=== PATIENT | male | born 2005 | race Hispanic/Latino ===

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

== ENCOUNTER 2024-07-10 19:12 | Emergency (ER) | payer BC, OTHER ==
[2024-07-10 20:22] LABS: Absolute Basophils 0.1 K/uL (0-0.5); Absolute Eosinophils 0.1 K/uL (0-0.5); Absolute Lymphocytes (CBC) 1.5 K/uL (0.7-4.9); Absolute Monocytes 0.4 K/uL (0.1-1.3); Basophils % 0.8 % (0-1.3); Eosinophils % 1.8 % (0-4.4); Hematocrit 44.1 % (39.6-49.0); Hemoglobin 14.6 g/dL (13.6-17.9); Lymphocytes % 21.4 % (15.3-44.8); MCH 30.7 pg (27.0-35.0); MCV 92.9 fL (80-100); MPV 9.5 fL (7.6-11.3); Monocytes % 5.9 % (3.3-12.3); Neutrophils % 70.1 % (41.7-73.7); Nucleated Red Blood Cells % 0.1 % (0-0); Platelets 286 thou/uL (152-406); RBC Red Blood Cell Count 4.75 M/uL (4.33-5.43); Red Cell Distribution Width 13.9 % (12.1-15.2)
[2024-07-10 20:24] LABS: Specific Gravity < 1.005 (1.005-1.030); Urine Bilirubin NEGATIVE (Negative); Urine Blood Negative (Negative); Urine Clarity Clear (Clear); Urine Color Colorless (Yellow); Urine Glucose NEGATIVE (Negative); Urine Ketones NEGATIVE (Negative); Urine Microscopic Reflex YN NO UMIC; Urine Nitrite NEGATIVE (Negative); Urine Protein NEGATIVE (Negative); Urine Urobilinogen Normal (Normal)
[2024-07-10 20:27] LABS: PT Prothrombin Time 10.8 SECONDS (10.0-13.0); PTT, Activated Partial Thromb 32.1 SECONDS (24.3-36.9); Protime INR 0.94
[2024-07-10 20:29] LABS: Benzodiazepines NEGATIVE (NEGATIVE); Cocaine NEGATIVE (NEGATIVE); METHAMPHETAM NEGATIVE (NEGATIVE); Opiates NEGATIVE (NEGATIVE); Phencyclidine NEGATIVE (NEGATIVE); THC Cannibis NEGATIVE (NEGATIVE)
[2024-07-10 20:30] LABS: Barbiturates NEGATIVE (NEGATIVE); Methadone NEGATIVE (NEGATIVE)
[2024-07-10 20:36] LABS: ALT/SGPT 20 U/L (16-61); AST/SGOT < 10 U/L (15-37); Albumin 3.8 g/dL (3.4-5.0); Albumin/Globulin Ratio 1.2 (1.1-1.8); Alkaline Phosphatase 59 U/L (45-117); Anion Gap 7.4 mEq/L (5.0-15.0); BUN Blood Urea Nitrogen 4 mg/dL (7-18); Bicarbonate 27 mEq/L (21-32); Bilirubin Direct < 0.2 mg/dL (0-0.2); Bilirubin Indirect, Calculated 0.2 mg/dL (0.2-0.8); Bilirubin Total 0.4 mg/dL (0.2-1.0); Globulin 3.3 g/dL (2.3-3.5); Glomerular Filtration Rate 138 ml/min (=/>90); Glucose Level 99 mg/dL (74-106); Potassium 3.4 mEq/L (3.5-5.1); Protein, Total 7.1 g/dL (6.4-8.2); Sodium Level 138 mEq/L (136-145)
--- NOTE | 2024-07-10 21:28 | RAD REPORT ---
EXAMINATION: Head Brain Wo Cont CLINICAL INDICATION: Male, 19 years old.CONFUSED TECHNIQUE: Axial CT images from the skull base to the vertex without intravenous contrast. Coronal an d sagittal reformatted images were created from the data set. One or more of the following dose reduction techniques were used: Automated exposure control, adjustment of the mA and/or kV according to patient size, and/or iterative reconstruction. Unless otherwise specified, incidental findings do not require dedicated imaging follow-up. [id number]. COMPARISON: No prior exam. FINDINGS: INTRACRANIAL: No acute intracranial hemorrhage. No hydrocephalus. No mass effect or midline shift. No significant white matter disease. VASCULATURE: No visualized abnormalities in the arteries or dural venous sinuses. SCALP/SKULL: No calvarial fracture identified. No acute soft tissue abnormality. SINUSES: The visualized paranasal sinuses are mostly clear. No significant mastoid fluid. IMPRESSION: No acute intracranial abnormality.
--- NOTE | 2024-07-10 21:46 | ER ---
Nurse's Notes [facility] Name: Ishan Marie Age: 19 yrs Sex: Male : 2005 Arrival Date: 07/10/2024 Time: 19:12 Bed Treatment Private MD: Diagnosis: Auditory hallucinations;Visual hallucinations Presentation: 07/10 19:36 Chief complaint: Patient states: auditory and visual hallucinations, no SI no HI. vc1 Coronavirus screen: Client denies travel out of the [place] in the last 14 days. At this time, the client does not indicate any symptoms associated with coronavirus-19. Ebola Screen: Patient negative for fever greater than or equal to 101.5 degrees Fahrenheit, and additional compatible Ebola Virus Disease symptoms Patient denies exposure to infectious person. Patient denies travel to an Ebola-affected area in the 21 days before illness onset. No symptoms or risks identified at this time. Initial Sepsis Screen: Does the patient meet any 2 criteria? No. Patient's initial sepsis screen is negative. Does the patient have a suspected source of infection? No. Patient's initial sepsis screen is negative. Risk Assessment: Do you want to hurt yourself or someone else? Patient reports no desire to harm self or others. Onset of symptoms is unknown. Care prior to arrival: None. Activity prior to arrival: None. 19:36 Method Of Arrival: Ambulatory vc1 19:36 Acuity: MAYA 3 vc1 Historical: - Allergies: 19:38 No Known Allergies; vc1 - PMHx: 19:38 Fused Vertebrae; Narrowing of the Spine; vc1 - PSHx: 19:38 None; vc1 - Immunization history:: Client reports receiving the 2nd dose of the Covid vaccine. - Infectious Disease History:: Denies. - Social history:: Smoking status: Reported history of juuling and/or vaping. Screenin:00 [facility] ED Fall Risk Assessment (Adult) History of falling in the last 3 months, jb4 including since admission No falls in past 3 months (0 pts) Confusion or Disorientation No (0 pts) Intoxicated or Sedated No (0 pts) Impaired Gait No (0 pts) Mobility Assist Device Used No (0 pt) Altered Elimination No (0 pt) Score/Fall Risk Level 0 - 2 = Low Risk Oriented to surroundings, Maintained a safe environment. Abuse screen: Denies threats or abuse. Nutritional screening: No deficits noted. Tuberculosis screening: No symptoms or risk factors identified. Assessment: 22:00 General: Appears in no apparent distress. comfortable, Behavior is calm, cooperative, jb4 appropriate for age. Pain: Denies pain. Neuro: Level of Consciousness is awake, alert, obeys commands, Oriented to person, place, time, situation, Reports Visual and auditory hallucincations.. Cardiovascular: Patient's skin is warm and dry. Respiratory: Airway is patent Respiratory effort is even, unlabored, Respiratory pattern is regular, symmetrical. Derm: Skin is intact, Skin is pink, warm \T\ dry. Musculoskeletal: Circulation, motion, and sensation intact. Range of motion: intact in all extremities. 23:30 Reassessment: Patient appears in no apparent distress at this time. Patient and/or jb4 family updated on plan of care and expected duration. Pain level reassessed. Patient is alert, oriented x 3, equal unlabored respirations, skin warm/dry/pink. Vital Signs: 19:36 Height 5 ft. 7 in. ; vc1 19:43 BP 147 / 93; Pulse 73; Resp 14; Temp 98.2; Pulse Ox 100% ; vc1 ED Course: 19:23 Patient arrived in ED. gm2 19:29 Marianela Kenny FNP-C is [facility]. kb 19:29 Sergio Hernandez MD is Attending Physician. kb 19:38 Triage completed. vc1 19:39 Arm band placed on right wrist. vc1 20:10 Inserted saline lock: 22 gauge in left antecubital area, using aseptic technique. Blood hw collected. Flushed with 10 mL NS. 20:11 Urinalysis w/ reflexes Sent. hw 20:11 Urine Drug Screen Sent. hw 20:11 Salicylate Sent. hw 20:11 Ptt, Activated Sent. hw 20:11 PT-INR Sent. hw 20:11 Hepatic Function Sent. hw 20:11 ETOH Level Sent. hw 20:11 CBC with Diff Sent. hw 20:11 Basic Metabolic Panel Sent. hw 20:11 Acetaminophen Sent. hw 21:14 CT Head Brain wo Cont In Process Unspecified. EDMS 21:51 Faxed patient clinicals to the following facilities for placement; [address] 22:00 Patient has correct armband on for positive identification. Bed in low position. Call jb4 light in reach. Side rails up X 1. Provided Education on: plan of care. 22:00 No provider procedures requiring assistance completed. IV discontinued, intact, jb4 bleeding controlled, No redness/swelling at site. Pressure dressing applied. Administered Medications: No medications were administered Medication: 07/11 00:03 VIS not applicable for this client. jb4 Outcome: 07/10 21:45 ER care complete, transfer ordered by MD. de la garza 22:00 Transferred by ground EMS to other acute care facility: [facility]. jb4 22:00 Condition: stable 22:00 Discharge instructions given to patient, family, Instructed on the need for transfer, Demonstrated understanding of instructions, 07/11 00:05 Patient left the ED. jb4 Signatures: Dispatcher [employer] EDMS Marianela Kenny, HOUSE MOVER-C HOUSE MOVER-Hima Walter RN DEBBI jb4 Gretta Ocampo RN RN 1 Daniella Holguin 1 Nithya Buchanan 2 Atiya Solis Corrections: (The following items were deleted from the chart) 00:03 07/10 22:00 General: Appears in no apparent distress. comfortable, Behavior is calm, jb4 cooperative, appropriate for age, jb4 07/11 00:03 07/10 22:00 Neuro: Level of Consciousness is awake, alert, obeys commands, Oriented to jb4 person, place, time, situation, jb4
--- NOTE | 2024-07-10 21:46 | EDPHYS ---
Physician Documentation [facility] Name: Ishan Marie Age: 19 yrs Sex: Male : 2005 Arrival Date: 07/10/2024 Time: 19:12 Bed Treatment Private MD: ED Physician Sergio Hernandez HPI: 07/10 19:36 This 19 yrs old Male presents to ER via Unassigned with complaints of Altered kb Mental Status, Hallucinations. 21:39 Patient is a 19-year-old male who presents for visual and auditory hallucinations that kb started 2 days ago. Reports he sees red lines and demons intermittently and has auditory hallucinations intermittently as well. States he has not been able to sleep. Father reports pt has had confusion as well. Reports pt was talking about his son earlier today, but pt has no children. No known psychiatric history. No reported drug or alcohol use. . Historical: - Allergies: 19:38 No Known Allergies; vc1 - PMHx: 19:38 Fused Vertebrae; Narrowing of the Spine; vc1 - PSHx: 19:38 None; vc1 - Immunization history:: Client reports receiving the 2nd dose of the Covid vaccine. - Infectious Disease History:: Denies. - Social history:: Smoking status: Reported history of juuling and/or vaping. ROS: 21:42 Constitutional: As per HPI kb Exam: 21:42 Constitutional: This is a well developed, well nourished patient who is awake, alert, kb and in no acute distress. Head/Face: Normocephalic, atraumatic. ENT: Moist Mucous membranes Cardiovascular: Regular rate Respiratory: Respirations even and unlabored. No increased work of breathing. Talking in full sentences Abdomen/GI: Soft, non-tender. No distention Skin: Warm, dry with normal turgor. Normal color. MS/ Extremity: Pulses equal, no cyanosis. Neurovascular intact. Full, normal range of motion. Neuro: Awake and alert, GCS 15, oriented to person, place, time, and situation. 21:42 Psych: Behavior/mood is pleasant, cooperative, Affect is calm, Oriented to person, place, time, Patient has no thoughts/intents to harm self or others. Judgement / Insight is normal. Delusions/hallucinations are present and described as red lines and demon. Vital Signs: 19:36 Height 5 ft. 7 in. ; vc1 19:43 BP 147 / 93; Pulse 73; Resp 14; Temp 98.2; Pulse Ox 100% ; vc1 MDM: 19:29 Medical Screening Exam initiated kb 21:43 Differential Diagnosis: drug use, etoh, psychosis . Data reviewed: vital signs, nurses kb notes. Consideration of Admission/Observation Escalation of care including admission/observation considered. pt will be transferred for inpatient psych. Historians other than the Patient: Parent: father. Counseling: I had a detailed discussion with the patient and/or guardian regarding the historical points, exam findings, and any diagnostic results supporting the discharge/admit diagnosis, lab results, radiology results, the need to transfer to another facility, [facility] does not immediately have the required specialist. ED course: Discussed outpatient follow up vs transfer to inpatient psychiatric facility. Pt believes he needs inpatient treatment so he requests transfer. 22:50 Management of patient was discussed with the following: Behavioral Health Provider: frederic Allen at [facility], pt accepted to [facility] by Dr Smith. 03 19:36 Order name: Acetaminophen; Complete Time: 20:52 kb 07/10 19:36 Order name: Basic Metabolic Panel; Complete Time: 20:52 kb 07/10 19:36 Order name: CBC with Diff; Complete Time: 20:29 kb 07/10 19:36 Order name: ETOH Level; Complete Time: 20:29 kb 07/10 19:36 Order name: Hepatic Function; Complete Time: 20:52 kb 07/10 19:36 Order name: PT-INR; Complete Time: 20:29 kb 07/10 19:36 Order name: Ptt, Activated; Complete Time: 20:29 kb 07/10 19:36 Order name: Salicylate; Complete Time: 20:52 kb 07/10 19:36 Order name: Urinalysis w/ reflexes; Complete Time: 20:29 kb 07/10 19:36 Order name: Urine Drug Screen; Complete Time: 20:31 kb 07/10 20:52 Order name: CT Head Brain wo Cont; Complete Time: 21:29 kb 07/10 19:36 Order name: EKG; Complete Time: 19:37 kb 07/10 19:36 Order name: IV Saline Lock; Complete Time: 20:11 kb 07/10 19:36 Order name: Labs collected and sent; Complete Time: 20:11 kb 07/10 19:36 Order name: Suicide Screening ([place]); Complete Time: 00:05 kb Administered Medications: No medications were administered Disposition: 07/11 09:02 Co-signature as Attending Physician, Sergio Hernandez MD I reviewed the patient's care rt provided by the Advanced Practice Provider and agree with the diagnosis and treatment plan. Disposition Summary: 07/10/24 21:45 Transfer Ordered Notes: Transfer Location: Psych Facility kb Reason: Higher level of care kb Condition: Stable kb Problem: new kb Symptoms: are unchanged kb Accepting Physician: Dr Enoch Smith(07/11/24 00:05) jb4 Diagnosis - Auditory hallucinations kb - Visual hallucinations kb Forms: - Medication Reconciliation Form kb - SBAR form kb Signatures: Dispatcher [employer] EDMarianela Thompson, MIG TIG WELDER-C MIG TIG WELDER-Hima Walter RN RN jb4 Gretta Ocampo RN RN vc1 Sergio Hernandez MD MD rt Corrections: (The following items were deleted from the chart) 07/10 19:37 19:37 ACETAMINOPHEN+C.LAB.BRZ ordered. EDMS EDMS 19:37 19:37 BASIC METABOLIC PANEL+C.LAB.BRZ ordered. EDMS EDMS 19:37 19:37 CBC+H.LAB.BRZ ordered. EDMS EDMS 19:37 19:37 ETHANOL+C.LAB.BRZ ordered. EDMS EDMS 19:37 19:37 HEPATIC FUNCTION+C.LAB.BRZ ordered. EDMS EDMS 19:37 19:37 PROTIME (+INR)+COAG.LAB.BRZ ordered. EDMS EDMS 19:37 19:37 PTT, ACTIVATED+COAG.LAB.BRZ ordered. EDMS EDMS 19:37 19:37 SALICYLATE+C.LAB.BRZ ordered. EDMS EDMS 19:37 19:37 Urinalysis+U.LAB.BRZ ordered. EDMS EDMS 19:37 19:37 URINE DRUG SCREEN+UC.LAB.BRZ ordered. EDMS EDMS 20:52 20:52 Head Brain Wo Cont+CT.RAD.BRZ ordered. EDMS EDMS 22:50 21:45 Dr frederic de la garza 07/11 00:05 07/10 19:36 EKG - Nurse/Tech ordered. frederic jb4 07/11 00:05 07/10 22:50 Dr Enoch de la garza jb4
[2024-07-11 00:35] VITALS: BP 147/93; TEMP 98.2; O2SAT 100
== END 2024-07-11 00:05 ==
LOC: ENDO 19:12 → ER 19:12
DX: R44.0 Auditory hallucinations (principal); R44.1 Visual hallucinations
CPT/HCPCS: 36415; 70450; 80048; 80076; 80143; 80179; 80307; 81003; 82077; 85025; 85610; 85730; 99285